=== PATIENT | female | born 1965 | race Caucasian/White ===

== ENCOUNTER 2016-12-23 11:27 | Emergency (ER) | payer MEDICARE, OTHER ==
[~2016-12-23] VITALS: Ht 167.6 cm; Wt 65.8 kg
[~2016-12-23 11:27] MED LIST: BUSPAR10 MG ORAL; HYDROXYZINE HCL25 M1 PO; MIRTAZAPINE15 MG ORAL; SEROQUEL25 MG ORAL
[2016-12-23] MEDS ORDERED: LORazepam Inj 2mg/ml 1ml IM ONE (11:45)
[2016-12-23] MEDS ORDERED: ALPRAZOLAM0.25 MG ORAL (12:32)
--- NOTE | 2016-12-23 12:56 | Emergency Room Report ---
History of Present Illness General Chief Complaint: General Complaint Source: Patient Present Illness HPI 51-year-old female for evaluation. Patient is crying, stating that she is having anxiety attack. States that she has lots of stressors including no job and a boyfriend who is sick. Notes history of anxiety. History of depression. States her medications are not helping. Denies any suicidal homicidal ideation. Denies alcohol or drug use. No aggravating or relieving factors. Denies any other associated symptom Allergies: Coded Allergies: No Known Allergies (Unverified , 11/25/16) Patient History Past Medical History: psych hx Past Surgical History: none Pertinent Family History: none Social History: Denies: alcohol use, drug use, smoking Now: No Immunizations: UTD Reviewed Nursing Documentation: PMH: Agreed, PSxH: Agreed Nursing Documentation-PMH Past Medical History: No History, Except For Hx Neurological Problems: Yes - ANXIETY Review of Systems All Other Systems: negative except mentioned in HPI Physical Exam Vital Signs Date Time Temp Pulse Resp B/P Pulse Ox O2 Delivery O2 Flow Rate FiO2 12/23/16 11:30 97.3 89 20 144/84 100 Room Air Sp02 EP Interpretation: reviewed, normal General Appearance: no apparent distress, alert, GCS 15, non-toxic Head: normocephalic Eyes: bilateral eye PERRL, bilateral eye normal inspection ENT: normal ENT inspection Neck: normal inspection Respiratory: normal inspection Cardiovascular #1: normal inspection Gastrointestinal: normal inspection Rectal: deferred Genitourinary: no CVA tenderness Musculoskeletal: normal inspection Neurologic: alert, oriented x3, responsive, motor strength/tone normal, sensory intact, speech normal Psychiatric: no suicidal/homicidal ideation, no delusions, depressed affect, anxious Skin: normal inspection Lymphatic: normal inspection Medical Decision Making Diagnostic Impression: Primary Impression: Anxiety ER Course Hospital Course 51-year-old female present to ED depressed and crying. States she's having anxiety attack Differential diagnoses include: anxiety, psychosis, ETOH Clinical course Patient placed on stretcher. on athletic monitor. After initial history and physical I ordered Ativan Upon reassessment patient is observed feeling better. Interacting appropriately. Patient states she feels better wishes to go home. Clinical findings consistent with anxiety reaction. I. I feel this is a highly complex case requiring extensive working including EKG/Rhythm strip, Xray/CT/US, Blood/urine lab work, repeat exams while in ED, and administration of strong opiates/narcotics for pain control, admission to hospital or close patient follow up. Diagnosis - anxiety Stable and discharged to home with Rx Xanax. Followup with PMD. Return to ED if symptoms recur or worse Last Vital Signs Date Time Temp Pulse Resp B/P Pulse Ox O2 Delivery O2 Flow Rate FiO2 12/23/16 11:30 97.3 89 20 144/84 100 Room Air Status: improved Disposition: HOME, SELF-CARE Condition: Stable Scripts Alprazolam* (XANAX*) 0.25 Mg Tablet 0.25 MG ORAL TID Y for For Anxiety, #20 TAB Prov: BRODIE SKINNER M.D. 12/23/16 Patient Instructions: Panic Attacks BRODIE SKINNER M.D. Dec 23, 2016 12:56
[2016-12-23 13:26] VITALS: BP 127/85
--- NOTE | 2017-01-17 08:34 | Nursing Contact Progress Note ---
[facility] Nursing Contact Note Date: Jan 17, 2017 Type: RN Initiated Reason for Contact: New problem/issue Additional Comments: Please discharge the patient Ms. Mota from the [facility].This is a verbal order from Dr. Fernandes. The director Ms. Fernando approved of this discharge. The therapists are aware. BUTCH NEVES R.N Jan 17, 2017 08:34
--- NOTE | 2017-01-17 08:45 | Nursing Contact Progress Note ---
[facility] Nursing Contact Note Date: Jan 17, 2017 Type: RN Initiated Reason for Contact: New problem/issue Additional Comments: This is a 51 year old female. The diagnosis was severe anxiety.The father took the patient back to the outside psychiatrist. The psychiatrist sent the patient for AUTISTIC TESTING. 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 The" patient will not be returning" per father . The father "will take the patient to [facility]. for further treatment.." The director is aware of this. She will be discharged from the program. BUTCH NEVES R.N Jan 17, 2017 08:45
== END 2016-12-23 13:33 | disposition home or self-care (01) ==
LOC: EMR 12:00
DX: F41.9 Anxiety disorder, unspecified (principal)
CPT/HCPCS: 96372; 99283